=== PATIENT | male | born 1950 | race Two or more races ===

== ENCOUNTER 2020-06-26 19:13 | Emergency (ER) | payer BC, OTHER ==
[~2020-06-26] VITALS: Ht 167.6 cm; Wt 100.0 kg
[2020-06-26] MEDS ORDERED: ASPI-728 PO (19:30)
[2020-06-26] MEDS ORDERED: INSU100V SQ (19:30)
[2020-06-26 20:16] LABS: CREATININE 2.89 mg/dL (0.60-1.30); POTASSIUM 5.4 mmol/L (3.5-5.1)
[2020-06-26 20:35] VITALS: BP 143/84
== END 2020-06-26 20:37 | disposition home or self-care (01) ==
LOC: EMS 19:16
DX: E87.5 Hyperkalemia (principal); N28.9 Disorder of kidney and ureter, unspecified; Z79.82 Long term (current) use of aspirin; Z79.4 Long term (current) use of insulin